=== PATIENT | female | born 1935 | race Caucasian/White ===

== ENCOUNTER → 2017-03-18 | Outpatient (CLI) | payer MEDICARE, BC ==
[~2017-03-18] MED LIST: ACETAMINOPHEN PO; ALLEGRA180 MG PO; ASPIRIN PO; ASPIRIN81 M1 PO; ASPIRIN81 M2 PO; AUGMENTIN PO; CELEXA PO; CIPROFLOXACIN500 M1 PO; COMPAZINE5 MG PO; DARVOCET N PO; DOC-Q-LACE100 MG PO; FLAGYL PO; K-DUR20 ME1 PO; LISINOPRIL PO; LISINOPRIL-HCTZ1 T20 PO; MAALOX SUSPENSI30 ML PO; MELOXICAM15 MG; METAMUCIL PO; METAMUCIL0.52 G PO; NIFEREX-150150 MG PO; NORCO 5/325 TAB1 TAB PO; NORVASC PO; PAIN RELIEF650 MG PO; PRAVACHOL PO; PROTONIX PO; ZOCOR PO
--- NOTE | ~2017-03-18 | MY29 ---
[facility] A Service of [facility] RADIOLOGY TEXT RESULTS PATIENT: VINICIO FELIZ LOCATION: [facility] : 37 UNIT #: [id number] AGE: [address]: Rosalba Rascon MD SEX: F ORDER DR: [id number] [facility] [address] [place], [place] [address] [id number] O MR#: [id number] #: [id number] NAME: VINICIO FELIZ. : 1935 SEX: F STUDY DATE/TIME: 03/18/2017 11:40 UNIT: [facility] ROOM: STUDY DESCRIPTION: MY FABIAN SCREENING W/ CAD BILAT Attending Physician: Rosalba Rascon M.D. Referring Physician: Rosalba Rascon M.D. Ordering Physician: Rosalba Rascon M.D. Primary Care Physician: Rosalba Rascon M.D. MEDICAL IMAGING REPORT This report is preliminary unless electronic signature is present EXAM Digital screening mammogram 03/18/2017 HISTORY 81-year-old woman no risk elevation. Annual screen. COMPARISON STUDIES Comparison mammograms date to 12/01/2006 with most recent 01/14/2016 FINDINGS Digital imaging of each breast was completed utilizing screening protocol. Review includes FDA-approved CAD device. Breast parenchyma remains dense with fibronodular pattern bilaterally. I see no suspicious mass characteristics. There are no interval occurring microcalcifications and no architectural deformity. IMPRESSION Benign mammogram. Annual screening recommended. BIRADS II Patients over the age of 40 are entered into a reminder system with target due date for the next mammogram. A result letter will also be sent to the patient. BIRADS: 2 - Benign finding Dictated by... Ravi Martin M.D. THIS IS AN ELECTRONICALLY VERIFIED REPORT Ravi Martin M.D. at 03/18/2017 4:25 PM Roger TD: 03/18/2017 15:57 [facility] A Service of [facility] RADIOLOGY TEXT RESULTS PATIENT: VINICIO FELIZ LOCATION: [facility] #: [id number] : 37 UNIT #: [id number] AGE: [address]: Rosalba Rascon MD SEX: F ORDER DR: JOB #: [id number] MEDICAL IMAGING REPORT Page 1 of 1 COPY
== END | disposition home or self-care (01) ==
LOC: CWCC 11:00
DX: Z12.31 Encounter for screening mammogram for malignant neoplasm of breast (principal)
CPT/HCPCS: G0202